=== PATIENT | female | born 1935 | race Caucasian/White ===

== ENCOUNTER 2017-09-22 18:33 | Emergency (ER) | payer MEDICARE ==
[~2017-09-22] VITALS: Ht 152.4 cm; Wt 76.2 kg
[2017-09-22 18:57] VITALS: BP 137/53
== END 2017-09-22 19:18 | disposition home or self-care (01) ==
LOC: ED 19:00
DX: I48.91 Unspecified atrial fibrillation (principal); I10 Essential (primary) hypertension; E78.5 Hyperlipidemia, unspecified; Z76.0 Encounter for issue of repeat prescription; Z86.73 Personal history of transient ischemic attack (TIA), and cerebral infarction without residual deficits
CPT/HCPCS: 99283

== ENCOUNTER 2018-02-09 14:58 | Emergency (ER) | payer MEDICARE, OTHER ==
[~2018-02-09] VITALS: Ht 167.6 cm; Wt 72.0 kg
[2018-02-09 15:23] VITALS: BP 138/63
== END 2018-02-09 16:02 | disposition home or self-care (01) ==
LOC: ED 15:56
DX: E78.00 Pure hypercholesterolemia, unspecified (principal); Z76.0 Encounter for issue of repeat prescription; Z86.73 Personal history of transient ischemic attack (TIA), and cerebral infarction without residual deficits; I48.91 Unspecified atrial fibrillation
CPT/HCPCS: 99283

== ENCOUNTER 2020-07-24 08:55 | Emergency (ER) | payer MEDICARE ==
[~2020-07-24] VITALS: Ht 162.6 cm; Wt 78.5 kg
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
[2020-07-24] MEDS ORDERED: MORPHINE SULFATE 4 MG/ML, 1ML IVPush PRN (09:30)
[2020-07-24] MEDS ORDERED: MORPHINE SULFATE 4 MG/ML, 1ML ONE (09:30)
[2020-07-24] MEDS ORDERED: ONDANSETRON 2MG/ML, 2ML IVPush ONE (09:30)
[2020-07-24] MEDS ORDERED: ONDANSETRON 2MG/ML, 2ML ONE (09:31)
[2020-07-24 09:32] LABS: BASOPHILS % (AUTO) 1 % (0-1); EOSINOPHILS % (AUTO) 3 % (1-7); LYMPHOCYTES % (AUTO) 22 % (22-44); MEAN CORPUSCULAR HEMOGLOBIN 31.3 pg (27.0-34.8); MEAN CORPUSCULAR HGB CONC 33.7 g/dL (32.4-35.8); MEAN PLATELET VOLUME 6.6 fL (7.4-10.4); MONOCYTES % (AUTO) 10 % (2-9); NEUTROPHILS % (AUTO) 65 % (42-75); PLATELET COUNT 293 x10^3/uL (130-400); RED BLOOD COUNT 4.92 x10^6/uL (3.82-5.3); RED CELL DISTRIBUTION WIDTH 13.9 % (9.6-15.2)
[2020-07-24 09:42] LABS: ALBUMIN 3.6 g/dL (3.4-5.0); ANION GAP 7 mmol/L (5-15); CALCIUM 8.8 mg/dL (8.5-10.1); CHLORIDE 109 mmol/L (98-107); CREATININE 0.99 mg/dL (0.55-1.02)
--- NOTE | 2020-07-24 09:46 | NUR ---
PT WAS MEDICATED FOR PAIN. CP MONITOR IN PLACE. SAFETY MEASURES IN PLACE.
--- NOTE | 2020-07-24 10:52 | NUR ---
PT. REPORTS RELIEF FROM PAIN AND IS ABLE TO AMBULATE WITH A STEADY GAIT IN THE GUZMAN. INFORMED.
--- NOTE | 2020-07-24 11:37 | NUR ---
PT. WAS GIVEN DISCHARGE INSTRUCTIONS WITH UNDERSTANDING VERBALIZED ALONG WITH WILLINGNESS TO COMPLY. PT.'S IV WAS DCD',CATH TIP INTACT. PRESSURE HELD WITH HEMOSTASIS ACHIEVED. PT. WAS AMBULATORY TO DISCHARGE WITH HER DAUGHTER DRIVING.
[2020-07-24 11:39] VITALS: BP 120/84
== END 2020-07-24 11:41 | disposition home or self-care (01) ==
LOC: ED 09:17
DX: S76.011A Strain of muscle, fascia and tendon of right hip, initial encounter (principal); M51.36 Other intervertebral disc degeneration, lumbar region; I10 Essential (primary) hypertension; E78.00 Pure hypercholesterolemia, unspecified; I48.91 Unspecified atrial fibrillation; X58.XXXA Exposure to other specified factors, initial encounter; Y93.89 Activity, other specified; Y92.89 Other specified places as the place of occurrence of the external cause; Y99.8 Other external cause status
CPT/HCPCS: 36415; 72110; 73502; 80048; 82040; 85025; 96374; 96375; 99284; J2270; J2405

== ENCOUNTER 2020-07-28 09:03 | Emergency (ER) | payer MEDICARE ==
[~2020-07-28] VITALS: Ht 167.6 cm; Wt 78.5 kg
--- NOTE | 2020-07-28 09:27 | NUR ---
first contact with pt. pt here on monday for the same reasons. pt c/o right hip pain since monday. pt denies any other symptoms. pt's aox4. resps even and unlabored. pt's family member stated " she needs mri today, not x-ray." bp/spo2 monitors in place. call light within reach. warm blancket provided at this time.
[2020-07-28] MEDS ORDERED: morphine SULFATE 15 MG TAB.IR PO ONE (09:30)
[2020-07-28] MEDS ORDERED: KETAMINE 10 MG/ML, 20ML ONE (10:09)
[2020-07-28 10:14] LABS: BASOPHILS % (AUTO) 0 % (0-1); EOSINOPHILS % (AUTO) 2 % (1-7); LYMPHOCYTES % (AUTO) 32 % (22-44); MEAN CORPUSCULAR HEMOGLOBIN 31.4 pg (27.0-34.8); MEAN CORPUSCULAR HGB CONC 34.1 g/dL (32.4-35.8); MONOCYTES % (AUTO) 8 % (2-9); NEUTROPHILS % (AUTO) 58 % (42-75); PLATELET COUNT 306 x10^3/uL (130-400); RED BLOOD COUNT 5.15 x10^6/uL (3.82-5.3); RED CELL DISTRIBUTION WIDTH 13.8 % (9.6-15.2)
[2020-07-28 10:15] LABS: ALBUMIN 3.9 g/dL (3.4-5.0); ANION GAP 8 mmol/L (5-15); CALCIUM 9.4 mg/dL (8.5-10.1); CHLORIDE 107 mmol/L (98-107); CREATININE 1.02 mg/dL (0.55-1.02)
[2020-07-28] MEDS ORDERED: KETAMINE 10 MG/ML, 20ML IV ONE (10:16)
[2020-07-28 10:18] LABS: MD NO
[2020-07-28] MEDS ORDERED: KETAMINE 100 MG/ML, 5ML IM STA (10:24)
--- NOTE | 2020-07-28 10:34 | NUR ---
TASK RN: UPON MD EVALUATION, PT WRITHING WITH BACK PAIN. ORDER RECEIVED FOR KETAMINE AND MORPHINE AND GIVEN NOTED ON MAR
--- NOTE | 2020-07-28 10:58 | NUR ---
pt is unable to amb to br for ua. pt refused straight cath. bedside commode provided at this time.
--- NOTE | 2020-07-28 11:07 | NUR ---
ua collected and ua sent at this time.
[2020-07-28 11:28] LABS: MICROSCOPIC NOT IND
--- NOTE | 2020-07-28 11:32 | NUR ---
PT IN CT AT THIS TIME.
--- NOTE | 2020-07-28 12:06 | NUR ---
report given to abhishek mccurdy.
--- NOTE | 2020-07-28 12:18 | NUR ---
REPORT FROM LEANN
--- NOTE | 2020-07-28 12:30 | NUR ---
PT TO BATHROOM W FAMILY MEMBER.
[2020-07-28 13:15] VITALS: BP 126/71
--- NOTE | 2020-07-28 13:15 | NUR ---
Patient given discharge instructions and they have confirmed that they understand the instructions. Patient ambulatory with steady gait.
== END 2020-07-28 13:17 | disposition home or self-care (01) ==
LOC: ED 09:29
DX: S39.012A Strain of muscle, fascia and tendon of lower back, initial encounter (principal); M25.551 Pain in right hip; R10.9 Unspecified abdominal pain; I10 Essential (primary) hypertension; Z86.73 Personal history of transient ischemic attack (TIA), and cerebral infarction without residual deficits; Z79.899 Other long term (current) drug therapy; X58.XXXA Exposure to other specified factors, initial encounter; Y93.89 Activity, other specified; Y92.89 Other specified places as the place of occurrence of the external cause; Y99.8 Other external cause status
CPT/HCPCS: 36415; 74176; 80048; 81003; 82040; 85025; 96372; 99285